=== PATIENT | male | born 1975 | race Two or more races ===

== ENCOUNTER 2020-04-21 11:28 | Observation (INO) | payer MEDICAID, OTHER ==
[~2020-04-21] VITALS: Ht 167.6 cm; Wt 58.6 kg
--- NOTE | 2020-04-21 11:46 | NUR ---
yoel hussein in room to translate
[2020-04-21 12:12] LABS: BASOPHILS # (AUTO) 0.1 X10'3 (0-0.2); BASOPHILS % (AUTO) 0.5 % (0-1); EOSINOPHILS # (AUTO) 0.1 X10'3 (0-0.9); EOSINOPHILS % (AUTO) 0.6 % (0-6); HEMOGLOBIN 15.6 g/dl (14.0-17.9); LYMPHOCYTES # (AUTO) 1.7 X10'3 (1.1-4.8); LYMPHOCYTES % (AUTO) 16.1 % (21-51); MEAN CORPUSCULAR HEMOGLOBIN 30.5 PG (27.0-31.0); MEAN CORPUSCULAR HGB CONC 33.2 g/dL (33.0-36.5); MEAN CORPUSCULAR VOLUME 92.1 FL (78-98); MEAN PLATELET VOLUME 9.1 FL (7.4-10.4); MONOCYTES # (AUTO) 0.5 X10'3 (0-0.9); MONOCYTES % (AUTO) 5.1 % (2-12); NEUTROPHILS # (AUTO) 8.3 X10'3 (1.8-7.7); NEUTROPHILS % (AUTO) 77.7 % (42-75); PLATELET COUNT 230 X10'3 (140-440); RED CELL DISTRIBUTION WIDTH 12.7 % (11.5-14.5); WHITE BLOOD COUNT 10.6 X10'3 (4.5-11.0)
[2020-04-21 12:29] LABS: ALANINE AMINOTRANSFERASE 48 U/L (12-78); ALBUMIN 4.2 G/DL (3.4-5.0); ALBUMIN/GLOBULIN RATIO 1.4 (1.1-1.5); ALKALINE PHOSPHATASE 73 IU/L (46-116); ANION GAP 8 (8-16); ASPARTATE AMINO TRANSFERASE 42 U/L (10-37); BILIRUBIN,TOTAL 0.3 MG/DL (0.1-1.0); BLOOD UREA NITROGEN 18 MG/DL (7-18); BUN/CREATININE RATIO 15.7 (5.4-32.0); CALCIUM 8.8 MG/DL (8.5-10.1); CHLORIDE 104 MMOL/L (99-107); CREATININE 1.15 MG/DL (0.60-1.10); GLUCOSE 146 MG/DL (70-104); POTASSIUM 4.3 MMOL/L (3.5-5.1); SODIUM 141 MMOL/L (135-145); TOTAL CARBON DIOXIDE 28.8 MMOL/L (24-32); TOTAL PROTEIN 7.3 G/DL (6.4-8.2); eGFR 69 ML/MIN
[2020-04-21] MEDS ORDERED: oxyCODONE/APAP 10/325mg tablet PO ONE (12:45)
[2020-04-21] MEDS ORDERED: iohexol 300mg/ml 100ml inj. ONE (12:55)
[2020-04-21] MEDS ORDERED: ketorolac tromethamine 15mg/ml inj. IV ONE (14:25)
[2020-04-21] MEDS ORDERED: morphine 4 MG/ML inj SYRINge IV ONE (14:25)
[2020-04-21] MEDS ORDERED: NO HOME MEDS (14:39)
[2020-04-21] MEDS ORDERED: potassium Cl 20 mEq SR tablet PO PRN ×2 (16:30)
[2020-04-21] MEDS ORDERED: normal saline 1000ml 1,000 ML IV SCH (16:30)
[2020-04-21] MEDS ORDERED: morphine 2 MG/ML inj. syringe IV PRN (16:30)
[2020-04-21] MEDS ORDERED: magnesium 4gm in 100ml NS 100 ML IV PRN (16:30)
[2020-04-21] MEDS ORDERED: ondansetron/PF 4mg/2ml inj IV PRN (16:30)
[2020-04-21] MEDS ORDERED: magnesium Cl slow-release 64mg tablet PO PRN (16:30)
[2020-04-21] MEDS ORDERED: magnesium 2GM in 50ml NS 50 ML IV PRN (16:30)
[2020-04-21] MEDS ORDERED: potassium CL 10mEq/100ml bag 100 ML IV PRN ×2 (16:30)
--- NOTE | 2020-04-21 18:56 | NUR ---
patient att bedside eating dinner no observable s/s of acute stress at this time
[2020-04-21] MEDS: K and/or MAG REPLACEMENT MC SCH (20:00)
--- NOTE | 2020-04-21 20:42 | NUR ---
Patient in room ED 16. I have received report from Ramesh LOCO and had the opportunity to ask questions and assume patient care.
[2020-04-21 21:00] VITALS: BP 122/70
[2020-04-21] MEDS: docusate sod 100mg capsule PO SCH (21:02)
[2020-04-21 22:00] VITALS: BP 102/71
--- NOTE | 2020-04-21 23:45 | NUR ---
Problems reprioritized. Patient report given, questions answered & plan of care reviewed with Alexa LOCO.
--- NOTE | 2020-04-22 02:00 | NUR ---
PATIENT TRANSFERRED TO ROOM 4011B WITH ALL BELONGINGS. RECEIVED REPORT FROM CLEVE LOCO AND ASSUMED PATIENT CARE.
[2020-04-22 05:11] LABS: BASOPHILS % (AUTO) 0.4 % (0-1); EOSINOPHILS # (AUTO) 0.1 X10'3 (0-0.9); EOSINOPHILS % (AUTO) 1.1 % (0-6); HEMATOCRIT 44.3 % (42.0-52.0); HEMOGLOBIN 14.7 g/dl (14.0-17.9); LYMPHOCYTES # (AUTO) 1.8 X10'3 (1.1-4.8); LYMPHOCYTES % (AUTO) 19.6 % (21-51); MEAN CORPUSCULAR HEMOGLOBIN 30.5 PG (27.0-31.0); MEAN CORPUSCULAR HGB CONC 33.2 g/dL (33.0-36.5); MEAN CORPUSCULAR VOLUME 91.8 FL (78-98); MEAN PLATELET VOLUME 9.1 FL (7.4-10.4); MONOCYTES # (AUTO) 0.8 X10'3 (0-0.9); NEUTROPHILS # (AUTO) 6.2 X10'3 (1.8-7.7); NEUTROPHILS % (AUTO) 69.9 % (42-75); PLATELET COUNT 206 X10'3 (140-440); RED BLOOD COUNT 4.83 X10'6 (4.70-6.10); RED CELL DISTRIBUTION WIDTH 13.2 % (11.5-14.5); WHITE BLOOD COUNT 8.9 X10'3 (4.5-11.0)
[2020-04-22 05:15] LABS: ALBUMIN 3.6 G/DL (3.4-5.0); ANION GAP 6 (8-16); BLOOD UREA NITROGEN 17 MG/DL (7-18); BUN/CREATININE RATIO 16.7 (5.4-32.0); CALCIUM 8.7 MG/DL (8.5-10.1); CHLORIDE 107 MMOL/L (99-107); CREATININE 1.02 MG/DL (0.60-1.10); GLUCOSE 90 MG/DL (70-104); MAGNESIUM 2.1 MG/DL (1.5-2.4); POTASSIUM 3.9 MMOL/L (3.5-5.1); SODIUM 142 MMOL/L (135-145); TOTAL CARBON DIOXIDE 29.3 MMOL/L (24-32); eGFR 79 ML/MIN
[2020-04-22] MEDS: HYDROcodone/acetaminophen 5mg/325mg tablet PO PRN ×2 (05:53→12:34)
--- NOTE | 2020-04-22 06:30 | NUR ---
Patient in room ORTHO 4011. I have received report from Alexa LOCO and had the opportunity to ask questions and assume patient care.
--- NOTE | 2020-04-22 06:31 | NUR ---
REPORT GIVEN TO SHANA LOCO
[2020-04-22 06:47] VITALS: BP 109/69
[2020-04-22] MEDS: K and/or MAG REPLACEMENT MC SCH (07:06)
[2020-04-22] MEDS: docusate sod 100mg capsule PO SCH (08:27)
[2020-04-22] MEDS ORDERED: TRAM50TA2 PO (10:36)
[2020-04-22 11:00] VITALS: BP 102/65
== END 2020-04-22 13:40 | disposition home or self-care (01) ==
LOC: ER 11:29 → ED HOLD 16:30 → PCU 3S 20:45 → ORTHO 4S 04-22 02:00
PROVIDERS: ADMIT Internal Medicine; ATTEND Internal Medicine
DX: S22.42XA Multiple fractures of ribs, left side, initial encounter for closed fracture (principal); F17.200 Nicotine dependence, unspecified, uncomplicated; F19.10 Other psychoactive substance abuse, uncomplicated; V48.5XXA Car driver injured in noncollision transport accident in traffic accident, initial encounter; Y93.89 Activity, other specified; Y92.410 Unspecified street and highway as the place of occurrence of the external cause
CPT/HCPCS: 36415; 71045; 74177; 80048; 80053; 83735; 84484; 85025; 87081; 93005; 96374; 96375; 99285; G0378; J1885; J2270; J7030; Q9967